=== PATIENT | female | born 1955 | race Caucasian/White ===

== ENCOUNTER 2019-03-23 06:32 | Day surgery (SDC) | payer MEDICARE ==
[2019-03-23] MEDS ORDERED: Sodium Chloride 0.9% 1,000 ML IV SCH (07:00)
[2019-03-23] MEDS ORDERED: fentaNYL 100 MCG/2 ML SDV ONE (07:26)
[2019-03-23] MEDS ORDERED: Midazolam 1 MG/ML 2 ML SDV ONE (07:26)
[2019-03-23] MEDS ORDERED: Propofol 200 MG/20 ML SDV ONE (07:26)
[2019-03-23 09:37] VITALS: BP 109/54; PULSE 57
--- NOTE | 2019-03-24 10:38 | PROC ---
DATE OF PROCEDURE: 03/23/2019 SURGEON: Guero Joiner MD INDICATION: Leela is a 64-year-old female, who comes in for an esophageal gastroduodenoscopy with possible biopsy because she has been having abdominal pain and diarrhea. Her pain is in the epigastric and left upper quadrant area. The risks and benefits were explained to the patient, and the procedure was done as an outpatient. PROCEDURE IN DETAIL: The Olympus 180 scope was used. Anesthesia was given by nurse strategic intelligence officer. During the procedure, 2 mg of Versed was given, 2 mcg of fentanyl, and 200 mg of propofol was given by the nurse anastomosis. The tube was placed into the pharynx into the esophagus without difficulty and advanced through the esophagus into the stomach. The pylorus was identified and advanced in the first and second part of the duodenum. Upon retraction of the tube, we noted duodenal erythema. Biopsy was done for possible celiac disease. The tube was brought back into the stomach. We did 2 biopsies, 1 for Helicobacter pylori and 1 for cytology, as there is significant mucosal erythema throughout the antrum of the stomach. The tube was retroflexed into the fundus, which revealed no abnormality. The GE junction was identified. Slow retraction of the tube revealed no hiatal hernia noted. There was mild erythema noted in the mid esophagus area. The tube was removed and the vocal cords were normal. No abnormality. The tube was removed through the mouth, and the patient tolerated the procedure well. PREOPERATIVE DIAGNOSIS: Abdominal pain with diarrhea. POSTOPERATIVE DIAGNOSES: Mild duodenal erythema. Biopsy pending for celiac disease. Biopsy was done of the stomach, one for Helicobacter pylori and one for cytology due to the erythema of the mucosa. There was mild erythema noted in the mid esophagus. No lesions were noted. The tube was removed. Guero Joiner MD /[id number]
== END 2019-03-23 09:00 | disposition home or self-care (01) ==
LOC: JP.SDS 06:32
PROVIDERS: ATTEND Internal Medicine
DX: K29.50 Unspecified chronic gastritis without bleeding (principal); K52.89 Other specified noninfective gastroenteritis and colitis; K22.8 Other specified diseases of esophagus; K31.89 Other diseases of stomach and duodenum; I10 Essential (primary) hypertension; E11.9 Type 2 diabetes mellitus without complications; F17.200 Nicotine dependence, unspecified, uncomplicated; Z79.84 Long term (current) use of oral hypoglycemic drugs; Z79.899 Other long term (current) drug therapy
CPT/HCPCS: 88305; 88342; J2250; J2704; J3010; J7030

== ENCOUNTER 2019-04-21 07:05 | Day surgery (SDC) | payer MEDICARE ==
[~2019-04-21 07:05] MED LIST: Bupivacaine 0.5%/EPINEPHrine 1:200,000 50 ML MDV ONE
[2019-04-21] MEDS ORDERED: Acetaminophen 500 MG Tab PO ONE (07:15)
[2019-04-21] MEDS: Dextrose 5%-Lactated Ringers 1,000 ML IV SCH ×3 (08:11→23:00)
[2019-04-21] MEDS ORDERED: Ketamine 500 MG/5 ML MDV IV SCH (08:30)
[2019-04-21] MEDS ORDERED: Glycopyrrolate 0.2 MG/ML 5 ML MDV ONE (08:55)
[2019-04-21] MEDS ORDERED: Succinylcholine 200 MG/10 ML MDV ONE (08:55)
[2019-04-21] MEDS ORDERED: Propofol 200 MG/20 ML SDV ONE (08:55)
[2019-04-21] MEDS ORDERED: Dexamethasone 4 MG/ML SDV ONE (08:55)
[2019-04-21] MEDS ORDERED: Neostigmine Methylsulfate 1 MG/ML 5 ML Syringe ONE (08:55)
[2019-04-21] MEDS ORDERED: Ondansetron 4 MG/2 ML SDV ONE (08:55)
[2019-04-21] MEDS ORDERED: fentaNYL 250 MCG/5 ML SDV ONE (08:55)
[2019-04-21] MEDS ORDERED: Rocuronium 50 MG/5 ML Vial ONE (08:55)
[2019-04-21] MEDS: cefOXitin 2 GM in Sodium Chloride 0.9% 50 ML IV ONE ×2 (08:57→13:40)
[2019-04-21] MEDS ORDERED: Scopolamine 1.5 MG Transdermal Patch TOP ONE (09:00)
[2019-04-21] MEDS ORDERED: hydrOXYzine HCL 100 MG/2 ML SDV IM ONE (10:18)
[2019-04-21] MEDS ORDERED: Insulin Lispro 100 Unit/ML 3 ML KwikPen SUBCUT ONE (10:35)
[2019-04-21] MEDS ORDERED: fentaNYL 100 MCG/2 ML SDV IVPUSH ONE (10:36)
[2019-04-21] MEDS ORDERED: 50% Dextrose in Water 50 ML Syringe IVPUSH PRN (11:37)
[2019-04-21] MEDS ORDERED: Glucose Gel 15 GM in 37.5 GM Tube PO PRN (11:37)
[2019-04-21] MEDS ORDERED: Glucagon,Human Recombinant 1 MG Vial IM PRN (11:37)
[2019-04-21] MEDS ORDERED: Ondansetron 4 MG/2 ML SDV IVPUSH PRN (11:41)
[2019-04-21] MEDS ORDERED: Pantoprazole 40 MG Vial IVPUSH SCH (12:00)
[2019-04-21] MEDS: Insulin Lispro 100 Unit/ML 3 ML KwikPen SUBCUT PRN ×2 (12:12→17:10)
[2019-04-21] MEDS ORDERED: Nicotine 21 MG/24 Hr Patch TRDERM ONE (14:00)
[2019-04-21] MEDS: HYDROmorphone 1 MG/ML Syringe IV PRN ×2 (14:14→18:36)
[2019-04-21] MEDS: cefOXitin 2 GM in Sodium Chloride 0.9% 50 ML IV SCH ×2 (15:11→20:44)
[2019-04-21] MEDS: metFORMIN 500 MG Tab PO SCH (17:10)
[2019-04-21] MEDS: Pregabalin 75 MG Cap PO SCH (20:44)
[2019-04-21] MEDS: Acetaminophen/HYDROcodone 325-5 MG Tab PO PRN (22:11)
[2019-04-22] MEDS: cefOXitin 2 GM in Sodium Chloride 0.9% 50 ML IV SCH ×2 (02:01→09:12)
[2019-04-22] MEDS: Acetaminophen/HYDROcodone 325-5 MG Tab PO PRN ×2 (02:39→07:56)
[2019-04-22] MEDS: HYDROmorphone 0.5 MG/0.5 ML Syringe IVPUSH PRN ×2 (02:43→09:32)
[2019-04-22] MEDS ORDERED: Levothyroxine 112 MCG Tab PO SCH (07:30)
[2019-04-22] MEDS: metFORMIN 500 MG Tab PO SCH (08:03)
[2019-04-22] MEDS: Pregabalin 75 MG Cap PO SCH (08:03)
[2019-04-22] MEDS ORDERED: Atenolol 50 MG Tab PO SCH (09:00)
[2019-04-22] MEDS ORDERED: FARXIGA 10 MG PO SCH (09:00)
[2019-04-22] MEDS ORDERED: Diltiazem 120 MG Cap.CD PO SCH (09:00)
[2019-04-22 09:37] VITALS: BP 105/55; PULSE 63
--- NOTE | 2019-04-22 22:12 | DISCH ---
FINAL DIAGNOSES: 1. Chronic cholecystitis and cholelithiasis. 2. Incarcerated umbilical hernia. 3. Enlarged teodoro hepatis lymph node. SECONDARY DIAGNOSES: 1. Reflex sympathetic dystrophy of the leg. 2. Hypertension. 3. History of thalassemia. 4. Treated hypothyroidism. 5. Type 2 diabetes mellitus. OPERATIVE PROCEDURES: This was done on 04/21/2019. Diagnostic laparoscopy with: 1. Cholecystectomy. 2. Repair of incarcerated umbilical hernia. 3. Excision of enlarged teodoro hepatis lymph node. SUMMARY: This is a 64-year-old female presenting with worsening problems with biliary colic. Ultrasound was consistent with cholelithiasis, and HIDA scan was also abnormal with low ejection fraction. On the day of admission, the patient underwent a laparoscopic cholecystectomy. She also was noted to have an umbilical hernia present, which was repaired and an enlarged teodoro hepatis lymph node was notable and treated with an excisional biopsy. Postoperatively, no major problems were noted. She is tolerating [place] for pain, and she will be discharged home on her usual medications otherwise. Follow up with TATY Landis, at [facility] on 05/01/2019.
--- NOTE | 2019-05-01 11:57 | OR ---
DATE OF PROCEDURE: 04/21/2019 SURGEON: Michael Britton MD PREOPERATIVE DIAGNOSES: Chronic cholecystitis and cholelithiasis. POSTOPERATIVE DIAGNOSES: 1. Chronic cholecystitis and cholelithiasis. 2. Incarcerated umbilical hernia. 3. Enlarged teodoro hepatis lymph node. OPERATIVE PROCEDURES: Diagnostic laparoscopy with: 1. Cholecystectomy (79470). 2. Repair of incarcerated umbilical hernia (74929). 3. Excision of enlarged teodoro hepatis lymph node (21509). ANESTHESIA: General. BELT PICKER: Maryann Buitrago PA-C. INDICATIONS FOR PROCEDURE: This is a 64-year-old presenting with recurrent upper abdominal pain consistent with biliary colic. Ultrasound showed cholelithiasis. Plan is to proceed with a laparoscopic cholecystectomy. Potential risks of the procedure including bleeding, infection, injury to underlying viscera, problems with stones migrating in the common bile duct requiring additional procedures for correction were all reviewed, and the patient wishes to proceed. DETAILS OF PROCEDURE: The patient was taken to the operating room after general endotracheal anesthesia was induced. The abdomen was prepped and draped. The patient was noted at this point to have a small umbilical hernia. A transverse subumbilical incision was made and the incision carried down into the incarcerated preperitoneal fat. This was excised at this point and the 12 mm trocar was then passed through the fascial defect without difficulty. The peritoneal cavity was inflated to 15 mmHg pressure with CO2. Laparoscope was reinserted. No underlying trocar insertion site injuries were seen. At this point, 12 mm epigastric trocar was placed along with a 5 mm subcostal trocar and bilateral transversus abdominis plane blocks were placed. The gallbladder was then retracted anterolaterally. There were some omental adhesions to the gallbladder which were taken down with Harmonic Scalpel. Gallbladder itself was fairly densely distended and somewhat edematous and with somewhat swanson coloration consistent with a chronic cholecystitis. Dissection was continued around the gallbladder neck and cystic duct junction. Once that area was well delineated along with the adjacent cystic artery, both structures were clipped 3 times proximally and once distally and divided. The gallbladder was then dissected off the gallbladder bed using Harmonic scalpel and delivered through the epigastric trocar site. Multiple small stones were present within the gallbladder. During the course of the dissection, in the area of the cystohepatic triangle, there was a large teodoro hepatis lymph node. This was excised and sent as a separate specimen to rule out any additional pathology. At this point, no bleeding or bile leaks were seen. A drain was felt not to be necessary. The camera was brought up to the epigastric site and the sutures for repair of the umbilical hernia were then placed with the laparoscopic suture passer. Once these were in place, the remaining trocars were removed and the peritoneal cavity deflated and the umbilical hernia sutures were then tied. The fascia at the epigastric site was also closed with 0 Vicryl stitch and the skin at each incision with 4-0 Vicryl skin stitch. Dry sterile dressing was applied. The patient was taken to the recovery room in satisfactory condition. There were no evident complications. Physician assistant real estate manager, Maryann Buitrago, played an essential role in assisting in this case, helping to position the patient, retract structures as needed, as well as suturing and cutting sutures when indicated. Her presence improved the patient's safety and decreased operative time. Michael Britton MD /[id number]
== END 2019-04-22 10:23 | disposition home or self-care (01) ==
LOC: JP.SDS 07:05 → JP.MS 10:15 → JP.SDS 04-22 10:23
PROVIDERS: ATTEND Surgery
DX: K80.10 Calculus of gallbladder with chronic cholecystitis without obstruction (principal); K42.0 Umbilical hernia with obstruction, without gangrene; R59.0 Localized enlarged lymph nodes; G90.521 Complex regional pain syndrome I of right lower limb; I10 Essential (primary) hypertension; E11.9 Type 2 diabetes mellitus without complications; F17.200 Nicotine dependence, unspecified, uncomplicated; E66.9 Obesity, unspecified; Z68.31 Body mass index [BMI] 31.0-31.9, adult; Z88.8 Allergy status to other drugs, medicaments and biological substances
CPT/HCPCS: 36415; 47562; 49653; 82247; 82962; 84075; 85025; 88302; 88304; A9270; C9113; J0171; J0330; J0694; J1100; J1170; J1815; J2405; J2704; J2710; J2795; J3010; J3410; J3490; J7050; J7121

== ENCOUNTER 2019-10-05 05:35 | Inpatient (IN) | payer MEDICARE ==
[~2019-10-05 05:35] MED LIST changes: +Acetaminophen 500 MG Tab PO ONE; -Bupivacaine 0.5%/EPINEPHrine 1:200,000 50 ML MDV ONE; +Celecoxib 200 MG Cap PO ONE; +Gabapentin 300 MG Cap PO ONE
[2019-10-05] MEDS ORDERED: Dextrose 5%-Lactated Ringers 1,000 ML IV SCH (06:00)
[2019-10-05] MEDS ORDERED: Bupivacaine 0.5%/EPINEPHrine 1:200,000 50 ML MDV ONE (06:46)
[2019-10-05] MEDS ORDERED: Meropenem 500 MG SDV ONE (06:46)
[2019-10-05] MEDS ORDERED: Dexamethasone 4 MG/ML SDV ONE (07:10)
[2019-10-05] MEDS ORDERED: Succinylcholine 200 MG/10 ML MDV ONE (07:10)
[2019-10-05] MEDS ORDERED: Neostigmine Methylsulfate 1 MG/ML 5 ML Syringe ONE (07:10)
[2019-10-05] MEDS ORDERED: Propofol 200 MG/20 ML SDV ONE (07:10)
[2019-10-05] MEDS ORDERED: Ondansetron 4 MG/2 ML SDV ONE (07:10)
[2019-10-05] MEDS ORDERED: fentaNYL 250 MCG/5 ML SDV ONE (07:10)
[2019-10-05] MEDS ORDERED: Glycopyrrolate 0.2 MG/ML 5 ML MDV ONE (07:10)
[2019-10-05] MEDS ORDERED: Rocuronium 50 MG/5 ML Vial ONE (07:10)
[2019-10-05] MEDS ORDERED: ceFAZolin 2 GM in Premix Bag 1 BAG IV ONE (07:15)
[2019-10-05] MEDS ORDERED: Ropivacaine 40 ML, dexAMETHasone 8 MG, EPINEPHrine 0.4 MG, Sodium Chloride 0.9% 37.6 ML NERVRT SCH ×4 (08:15)
[2019-10-05] MEDS ORDERED: hydrOXYzine HCL 100 MG/2 ML SDV IM ONE (08:36)
[2019-10-05] MEDS ORDERED: Insulin Lispro 100 Unit/ML 3 ML KwikPen SUBCUT ONE (08:45)
[2019-10-05] MEDS ORDERED: Ketamine 500 MG/5 ML MDV IV SCH (08:45)
[2019-10-05] MEDS ORDERED: fentaNYL 100 MCG/2 ML SDV IVPUSH ONE (08:53)
[2019-10-05] MEDS: Lactated Ringers 1,000 ML IV SCH ×2 (09:13→18:41)
[2019-10-05] MEDS ORDERED: 50% Dextrose in Water 50 ML Syringe IVPUSH PRN (10:24)
[2019-10-05] MEDS ORDERED: Glucose Gel 15 GM in 37.5 GM Tube PO PRN (10:24)
[2019-10-05] MEDS ORDERED: Glucagon,Human Recombinant 1 MG Vial IM PRN (10:24)
[2019-10-05] MEDS: HYDROmorphone 1 MG/ML Syringe IV PRN ×4 (10:40→21:31)
[2019-10-05] MEDS ORDERED: HYDROmorphone 0.5 MG/0.5 ML Syringe IVPUSH PRN (11:00)
[2019-10-05] MEDS ORDERED: Ondansetron 4 MG/2 ML SDV IVPUSH PRN (11:00)
[2019-10-05] MEDS ORDERED: hydrOXYzine HCL 100 MG/2 ML SDV IM PRN (11:00)
[2019-10-05] MEDS: FARXIGA 10 MG PO SCH (11:58)
[2019-10-05] MEDS: Insulin Lispro 100 Unit/ML 3 ML KwikPen SUBCUT PRN ×3 (11:59→21:41)
[2019-10-05] MEDS: JANUVIA 100 MG PO SCH (11:59)
[2019-10-05] MEDS: oxyCODONE 5 MG Tab PO PRN (13:10)
[2019-10-05] MEDS: ceFAZolin 2 GM in Premix Bag 1 BAG IV SCH ×2 (14:52→21:37)
[2019-10-05] MEDS: metFORMIN 500 MG Tab PO SCH (17:12)
[2019-10-05] MEDS: Rosuvastatin 10 MG Tab PO SCH (21:37)
[2019-10-05] MEDS: Pregabalin 75 MG Cap PO SCH (21:37)
[2019-10-06] MEDS: oxyCODONE 5 MG Tab PO PRN ×4 (00:32→21:12)
[2019-10-06] MEDS: HYDROmorphone 1 MG/ML Syringe IV PRN ×2 (02:22→05:00)
[2019-10-06] MEDS: Lactated Ringers 1,000 ML IV SCH ×2 (04:53→18:00)
[2019-10-06] MEDS: ceFAZolin 2 GM in Premix Bag 1 BAG IV SCH (05:03)
[2019-10-06] MEDS ORDERED: Albuterol/Ipratropium 3.0-0.5 MG/3 ML Neb Soln NEB PRN (07:15)
[2019-10-06] MEDS: Albuterol/Ipratropium 3.0-0.5 MG/3 ML Neb Soln NEB SCH ×4 (07:20→21:06)
[2019-10-06] MEDS ORDERED: Furosemide 20 MG/2 ML VIAL IVPUSH ONE (07:30)
[2019-10-06] MEDS: metFORMIN 500 MG Tab PO SCH ×2 (07:51→17:59)
[2019-10-06] MEDS: Acetaminophen 500 MG Tab PO SCH ×3 (07:52→19:50)
[2019-10-06] MEDS: Levothyroxine 112 MCG Tab PO SCH (07:52)
[2019-10-06] MEDS: Insulin Lispro 100 Unit/ML 3 ML KwikPen SUBCUT PRN ×4 (07:53→21:29)
[2019-10-06] MEDS: Albuterol/Ipratropium 3.0-0.5 MG/3 ML Neb Soln ONE ×2 (08:00→09:14)
[2019-10-06] MEDS: JANUVIA 100 MG PO SCH (08:03)
[2019-10-06] MEDS: FARXIGA 10 MG PO SCH (08:03)
[2019-10-06] MEDS: Celecoxib 200 MG Cap PO SCH ×2 (08:04→21:06)
[2019-10-06] MEDS: Diltiazem 120 MG Cap.CD PO SCH (08:04)
[2019-10-06] MEDS: Atenolol 25 MG Tab PO SCH (08:06)
[2019-10-06] MEDS: Cetirizine 10 MG Tab PO SCH (08:06)
[2019-10-06] MEDS: Pregabalin 75 MG Cap PO SCH ×2 (08:11→21:06)
[2019-10-06] MEDS ORDERED: Non-Formulary Medication 1 Each (Sitagliptin [Januvia] 100 MG) PO SCH (09:00)
[2019-10-06] MEDS ORDERED: DILTIAZEM HCL 240 MG PO SCH (09:00)
[2019-10-06] MEDS ORDERED: Non-Formulary Medication 1 Each (Rosuvastatin [Crestor] 5 MG) PO SCH (09:00)
[2019-10-06] MEDS ORDERED: Pregabalin 75 MG Cap PO SCH (09:00)
[2019-10-06] MEDS ORDERED: metFORMIN 500 MG Tab PO SCH (09:00)
[2019-10-06] MEDS ORDERED: Non-Formulary Medication 1 Each (Atenolol [Atenolol] 100 MG) PO SCH (09:00)
[2019-10-06] MEDS ORDERED: DAPAGLIFLOZIN PROPANEDIOL 10 MG PO SCH (09:00)
[2019-10-06] MEDS ORDERED: Non-Formulary Medication 1 Each (Cetirizine Hcl [Zyrtec] 10 MG) PO SCH (09:00)
[2019-10-06] MEDS ORDERED: LEVOTHYROXINE SODIUM 112 MCG PO SCH (09:00)
[2019-10-06] MEDS: hydrOXYzine HCl 25 MG Tab PO PRN ×2 (09:46→13:51)
[2019-10-06] MEDS: Docusate Sodium 100 MG Cap PO SCH ×2 (09:47→21:06)
[2019-10-06] MEDS: Magnesium Hydroxide 400 MG/5 ML Susp 30 ML Cup PO PRN ×2 (09:55→19:49)
--- NOTE | 2019-10-06 10:02 | PN ---
DATE OF SERVICE: 10/06/2019 SUBJECTIVE: Thelma is postoperative day #1. Pain has been difficult to get in control. She also reports a little bit of shortness of breath and oxygen has been low 84% to 85% on 2 L when she is up ambulating. She does have nonintentional tremors. Blood sugar was 242 and 188 when last checked, it has not been checked yet this morning. Remain afebrile. REVIEW OF SYSTEMS: Remainder of review of systems negative for any pertinent positives and negatives. OBJECTIVE: GENERAL: Thelma Belle is a 64-year-old female. Color pale. Tremors noted. VITAL SIGNS: TPR at 0217 of 96.5, 74, 18, blood pressure is 130/53, and O2 sats by pulse oximetry 94 on 2 L of O2. HEENT: Negative. NECK: Supple. HEART: Regular rate and rhythm. LUNGS: Clear. ABDOMEN: Dressings dry and intact. Pressure dressing is on. EXTREMITIES: Without peripheral edema. ASSESSMENT: 1. Diagnostic laparotomy with lysis of adhesions. 2. Repair of incarcerated incisional hernia with mesh. 3. Placement of Interceed mesh. 4. Inadequate postop pain control. POSTOPERATIVE DIAGNOSES: Incarcerated incisional hernia. DATE OF SURGERY: 10/05/2019. SURGEON: Michael Britton MD PLAN: 1. Decrease IV to 80 mL per hour. 2. Change status to inpatient for pain control. 3. DuoNeb q.i.d. and p.r.n. 4. Lasix 10 mg IV 1 time. 5. Tylenol 1000 mg p.o. q.6 hours scheduled. 6. Celebrex 200 mg p.o. b.i.d. scheduled. 7. Hydroxyzine/Atarax 25 mg q.4 hours p.r.n. pain. Continue use of incentive spirometer and ambulation. 8. We will evaluate p.r.n. or in a.m. Maryann Buitrago PA-C /[id number]
[2019-10-06] MEDS: Calcium Carbonate 500 MG Tab.Chew PO PRN ×2 (14:00→19:49)
[2019-10-06] MEDS: Rosuvastatin 10 MG Tab PO SCH (21:06)
[2019-10-07] MEDS: oxyCODONE 5 MG Tab PO PRN ×3 (00:41→19:21)
[2019-10-07] MEDS: Acetaminophen 500 MG Tab PO SCH ×4 (02:13→19:23)
[2019-10-07] MEDS: Lactated Ringers 1,000 ML IV SCH (06:03)
[2019-10-07] MEDS: Levothyroxine 112 MCG Tab PO SCH (07:11)
[2019-10-07] MEDS: Albuterol/Ipratropium 3.0-0.5 MG/3 ML Neb Soln NEB SCH ×4 (07:28→21:16)
[2019-10-07] MEDS: metFORMIN 500 MG Tab PO SCH ×2 (08:04→17:18)
[2019-10-07] MEDS: Diltiazem 120 MG Cap.CD PO SCH (08:04)
[2019-10-07] MEDS: Atenolol 25 MG Tab PO SCH (08:05)
[2019-10-07] MEDS: Cetirizine 10 MG Tab PO SCH (08:05)
[2019-10-07] MEDS: Docusate Sodium 100 MG Cap PO SCH ×2 (08:06→21:12)
[2019-10-07] MEDS: FARXIGA 10 MG PO SCH (08:06)
[2019-10-07] MEDS: JANUVIA 100 MG PO SCH (08:06)
[2019-10-07] MEDS: Celecoxib 200 MG Cap PO SCH ×2 (08:07→21:12)
[2019-10-07] MEDS: hydrOXYzine HCl 25 MG Tab PO PRN (08:12)
[2019-10-07] MEDS: Magnesium Hydroxide 400 MG/5 ML Susp 30 ML Cup PO PRN (08:12)
[2019-10-07] MEDS: Pregabalin 75 MG Cap PO SCH ×2 (08:12→21:12)
[2019-10-07] MEDS ORDERED: Sodium Chloride 0.9% 10 ML Syringe IV PRN (08:26)
[2019-10-07] MEDS: Bisacodyl 5 MG Tab PO SCH ×2 (08:57→21:04)
[2019-10-07] MEDS ORDERED: Furosemide 20 MG/2 ML VIAL IVPUSH ONE (09:00)
[2019-10-07] MEDS ORDERED: Bisacodyl 10 MG Supp RECTAL PRN (10:44)
[2019-10-07] MEDS: Insulin Lispro 100 Unit/ML 3 ML KwikPen SUBCUT PRN (12:48)
[2019-10-07] MEDS: Rosuvastatin 10 MG Tab PO SCH (21:13)
[2019-10-08] MEDS: oxyCODONE 5 MG Tab PO PRN ×2 (01:16→07:39)
[2019-10-08] MEDS: Acetaminophen 500 MG Tab PO SCH ×2 (01:16→07:39)
[2019-10-08] MEDS: Albuterol/Ipratropium 3.0-0.5 MG/3 ML Neb Soln NEB SCH ×2 (07:10→10:53)
[2019-10-08] MEDS: Levothyroxine 112 MCG Tab PO SCH (07:40)
[2019-10-08] MEDS: FARXIGA 10 MG PO SCH (08:00)
[2019-10-08] MEDS: Docusate Sodium 100 MG Cap PO SCH (08:01)
[2019-10-08] MEDS: JANUVIA 100 MG PO SCH (08:01)
[2019-10-08] MEDS: metFORMIN 500 MG Tab PO SCH (08:01)
[2019-10-08] MEDS: Bisacodyl 5 MG Tab PO SCH (08:01)
[2019-10-08] MEDS: Celecoxib 200 MG Cap PO SCH (08:02)
[2019-10-08] MEDS: Diltiazem 120 MG Cap.CD PO SCH (08:02)
[2019-10-08] MEDS: Atenolol 25 MG Tab PO SCH (08:02)
[2019-10-08] MEDS: Cetirizine 10 MG Tab PO SCH (08:03)
[2019-10-08 08:04] VITALS: BP 111/58; PULSE 73
[2019-10-08] MEDS ORDERED: Furosemide 20 MG/2 ML VIAL IVPUSH ONE (09:00)
[2019-10-08] MEDS: Pregabalin 75 MG Cap PO SCH (09:16)
--- NOTE | 2019-10-09 03:53 | DISCH ---
ADMISSION DIAGNOSES: 1. Incisional hernia. 2. Hyperlipidemia. 3. Hypertension. 4. Hypothyroidism. 5. Thalassemia. 6. Vitamin D deficiency. 7. Osteopenia. 8. Chronic right leg pain. 9. Impaired fasting glucose. 10.Osteoporosis. 11.Low back pain. 12.Scoliosis. 13.Gait disturbance. 14.50-year 1 pack cigarette smoker but has recently quit. DISCHARGE DIAGNOSES: 1. Diagnostic laparotomy with lysis of adhesion. 2. Repair of incarcerated incisional hernia with mesh. 3. Placement of Interceed mesh. POSTOPERATIVE DIAGNOSES: 1. Incarcerated incisional hernia. Date of surgical procedure 10/05/2019. Surgeon: Michael Britton MD. 2. Inadequate immediate postoperative pain control. 3. Hypoxia, low oximetry with ambulation and sleeping, requiring 1 to 2 L of oxygen. HISTORY: Thelma Belle is a pleasant 64-year-old female with incarcerated incisional hernia. After preoperative evaluation and discussion of possible risks and possible complications, she wished to proceed with surgical procedure. HOSPITAL COURSE: Thelma had her surgery on 10/05/2019. She had no operative complications. On postoperative day #1, her pain was not adequately controlled. She continued with the HEAT TREAT INSPECTOR and Celebrex 200 mg p.o. b.i.d. was added and Tylenol 1000 mg p.o. every 6 hours was scheduled. She had some shortness of breath and was started on DuoNeb q.i.d. and p.r.n. and given Lasix 10 mg IV 1 time. On postoperative day #2, she required 2 L of oxygen. When ambulating, nursing staff stated her O2 saturations would go to 79% without oxygen and even getting up and going to the bathroom, her O2 saturations would be around 88%. She maintained a pulse oximetry of above 92% to 96% on 2 L of O2. On postoperative day 3, Thelma was able to be discharged to home with home O2. REVIEW OF SYSTEMS: Remainder of review of systems were negative for any pertinent positives and negatives. OBJECTIVE: VITAL SIGNS: Thelma Belle is a pleasant 64-year-old female. She is alert and orientated. Tremors are noted. Height is 5 feet 2 inches. Weight is 162 pounds. TPR at 0708, 96.2, 68, and 16. Blood pressure is 118/58. HEENT: Negative. NECK: Supple. HEART: Regular rate and rhythm. LUNGS: Reveal decreased breath sounds bilaterally but no change and they are clear. ABDOMEN: Dressings 4x4 and ABDs are over the trocar sites. Sutures intact. She does have a pressure dressing over the incision area. Abdominal binder has been on. EXTREMITIES: Without peripheral edema. DISPOSITION: Discharged to home. CONDITION: Stable and improving. FOLLOWUP: Appointment with Maryann Buitrago PA-C, at [facility] on 10/17/2019 at 9:15 a.m. HOME MEDICATIONS: 1. Celebrex 200 mg oral twice daily #28. 2. Oxycodone 5 mg oral q.6 hours p.r.n. pain #28. 3. Tylenol 1000 mg oral q.6 hours p.r.n. pain. To resume home medications: 1. Zyrtec 10 mg oral daily. 2. Vitamin D3 at 4000 units oral daily. 3. Farxiga 10 mg oral daily. 4. Levothyroxine 112 mcg oral daily. 5. Lyrica 75 mg oral twice daily. 6. Crestor 5 mg oral daily. 7. Januvia 100 mg oral daily. 8. Chantix 1 mg oral twice daily. 9. Atenolol 100 mg oral daily. 10.Diltiazem Hcl 240 mg oral daily. 11.Metformin 1000 mg oral twice daily. DIET: Usual diet as tolerated. Drink 8 to 10 glasses of water a day. ACTIVITY: No lifting over 10 pounds for 6 weeks. OTHER ACTIVITY: Walk at least 6 times daily inside your home. DRIVING: Do not drive for 1 week and while on pain medication. SHOWER/BATHING: May shower. DISCHARGE INSTRUCTIONS: Notify provider if any fever, increased pain, swelling, redness, nausea, or vomiting. Wound incision care, keep site clean and dry. Take off Aquacel, wound clean and dry. Use incentive spirometer 10 times every hour while awake for 1 week and use oxygen as directed 1 to 2 L. We will have followup with primary care provider in regard to oxygen. LABORATORY DATA: Prior to discharge, hemoglobin 9.4. Creatinine was 0.9. GFR greater than 60. BNP was 681. Thelma was given 20 mg of Lasix IV prior to discharge.
--- NOTE | 2019-10-09 08:11 | PN ---
DATE OF SERVICE: 10/07/2019 SUBJECTIVE: Thelma is quite upset this morning. She is concerned about having to go home with oxygen. She has had 1-2 L on because her oxygen will drop into the high 80s when ambulating or when she is sleeping. She has a history of 50 years of smoking, 1 pack of cigarettes a day and quit 2 months ago. Pain is controlled. Another concern she has is that she has not had a bowel movement and has trouble after surgery with getting her bowels going. REVIEW OF SYSTEMS: Remainder of review of systems negative for any pertinent positives and negatives. OBJECTIVE: GENERAL: Thelma is a 64-year-old female who is quite anxious today, tearful. VITAL SIGNS: TPR at 0708 is 95.1, 62, 18; blood pressure is 117/56; O2 sats 95% on 2 L. HEENT: Negative. NECK: Supple. HEART: Regular rate and rhythm. LUNGS: Reveal some rales in bases bilaterally. ABDOMEN: Dressings dry and intact. Abdominal binder is on. EXTREMITIES: Without peripheral edema. ASSESSMENT: 1. Diagnostic laparoscopy with lysis of adhesions. 2. Repair of incarcerated incisional hernia with mesh. 3. Placement of Interceed mesh. 4. Inadequate postoperative pain control. 5. Low pulse oximetry. POSTOPERATIVE DIAGNOSES: Incarcerated incisional hernia. DATE OF PROCEDURE: 10/05/2019 SURGEON: Michael Britton MD PLAN: 1. Communication order written to only place oxygen on if O2 is 88% or less. 2. Check chest x-ray, PA and lateral, for low postop oximetry. 3. Dulcolax 10 mg p.o. b.i.d. scheduled, stop when patient has bowel movement. 4. Lasix 10 mg IV 1 time this a.m. 5. Convert IV to saline lock. 6. Discontinue IV Dilaudid. 7. We will evaluate p.r.n. or in a.m. Maryann Buitrago PA-C /[id number]
--- NOTE | 2019-10-09 09:20 | CR ---
CHEST: 2 view CLINICAL HISTORY:Postop, hypoxia COMPARISON:09/07/2016 FINDINGS: Heart size and pulmonary vascularity are normal. There are atherosclerotic changes in the aorta. There are streaky densities at both lung bases this is felt to represent some subsegmental atelectasis. Impression: Streaky bibasal atelectasis
--- NOTE | 2019-10-09 14:50 | OR ---
DATE OF PROCEDURE: 10/05/2019 SURGEON: Michael Britton MD PREOPERATIVE DIAGNOSIS: Incisional hernia. POSTOPERATIVE DIAGNOSIS: Incarcerated incisional hernia. OPERATIVE PROCEDURES: Diagnostic laparoscopy with lysis of adhesions: 1. Repair of incarcerated incisional hernia with mesh (07777). 2. Placement of Interceed mesh to limit adhesion formation between pelvic and abdominal tafoya and underlying viscera ([id number]). ANESTHESIA: General. FINISHING MANAGER: Maryann Buitrago PA-C INDICATIONS FOR PROCEDURE: This is a 64-year-old presenting with increasingly painful incisional hernia dislocated in trocar site views for recent cholecystectomy in the epigastrium. The plan is to proceed with diagnostic laparoscopy and laparotomy if necessary and repair of the hernia with mesh. Potential risks including bleeding, infection, injury to underlying viscera, problems with mesh becoming infected or the hernia recurring were all reviewed, and the patient wishes to proceed. DETAILS OF PROCEDURE: The patient was taken to the operating room and placed in a supine position. After general endotracheal anesthesia was induced, a Henry catheter was inserted, and the abdomen prepped and draped. In the left lower quadrant additionally, trocar was placed under direct vision and peritoneal cavity inflated to 15 mmHg pressure with CO2. Two additional 5 mm trocars were then placed across the lower abdomen. The patient was noted to have incarcerated incisional hernia in the epigastrium where the trocar for the cholecystectomy had been in place. Initially, we divided the falciform ligament away from the abdominal wall. This was then brought up to the area of herniation and the hernia contained some preperitoneal fat as well as falciform ligament within this. With external pressure, the refractory components were gradually dissected free using Harmonic scalpel, and then the falciform ligament divided further up over the liver to allow nice flat placement of the mesh. Primary fascial closure was then accomplished with three 2-0 Vicryl sutures, then the area of herniation was mapped out and a 15.[address] mesh with the balloon positioning system was selected. This was soaked in antibiotic-containing saline solution and placed in the intraperitoneal location. The inflation catheter was then pulled up through stab wounds centered over the area and the balloon then inflated thus bringing the mesh up against the abdominal wall. Mesh was circumferentially in 2 rows reinforced with absorbable tacking screws. At that point, no further problems were noted to limit adhesion formation between the area of the mesh as well as the lower abdomen, where the 5 mm trocars were placed. Interceed mesh was placed and the area irrigated with some further antibiotic-containing saline solution. The trocars were then sequentially removed. Given the patient's relatively poor abdominal musculature, all trocar sites including the 5 mm ports were closed in this case with 0 Vicryl sutures at the fascia level and the skin with 4-0 Vicryl skin stitch. Prior to closure, bilateral transversus abdominis plane blocks were placed and the wounds were anesthetized with 1% lidocaine with Marcaine as well, and the patient was taken to the recovery room in satisfactory condition. There were no evident complications. Physician physical therapy assistant instructor, Maryann Buitrago, played an essential role in assisting in this case, helping to position the patient, retract structures as needed, as well as suturing and cutting sutures when indicated. Her presence improved patient safety and decreased operative time. Michael Britton MD /[id number]
== END 2019-10-08 11:41 | disposition home or self-care (01) | DRG 355 ==
LOC: JP.SDS 05:35 → JP.MS 10:19 → JP.SDS 10-06 07:25 → JP.MS 10-06 08:29
PROVIDERS: ADMIT Surgery; ATTEND Surgery
PROC: 0WUF4JZ Supplement Abdominal Wall with Synthetic Substitute, Percutaneous Endoscopic Approach (ICD-10-PCS; principal; 2019-10-05)
PROC: 3E0M45Z Introduction of Adhesion Barrier into Peritoneal Cavity, Percutaneous Endoscopic Approach (ICD-10-PCS; 2019-10-05)
DX: K43.0 Incisional hernia with obstruction, without gangrene (principal); E78.5 Hyperlipidemia, unspecified; I10 Essential (primary) hypertension; E03.9 Hypothyroidism, unspecified; E55.9 Vitamin D deficiency, unspecified; D56.9 Thalassemia, unspecified; M85.80 Other specified disorders of bone density and structure, unspecified site; G89.29 Other chronic pain; M79.604 Pain in right leg; M81.0 Age-related osteoporosis without current pathological fracture; M54.5 Low back pain; M41.9 Scoliosis, unspecified; R26.9 Unspecified abnormalities of gait and mobility; Z87.891 Personal history of nicotine dependence; R09.02 Hypoxemia; Z79.899 Other long term (current) drug therapy; Z79.84 Long term (current) use of oral hypoglycemic drugs; Z79.890 Hormone replacement therapy; M43.16 Spondylolisthesis, lumbar region; E11.9 Type 2 diabetes mellitus without complications
CPT/HCPCS: 36415; 71046; 71046-26; 80053; 82962; 83735; 83880; 84100; 85027; 88302; 94640; 94762; A9270-GY; C1713; C1781; J0171; J0330; J0690; J1100; J1170; J1815; J1940; J2020; J2185; J2405; J2704; J2710; J2795; J3010; J3410; J3490; J7050; J7120; J7121; J7620-GY